=== PATIENT | male | born 1965 | race Caucasian/White ===

== ENCOUNTER 2020-02-22 16:43 | Inpatient (IN) ==
[2020-02-22] MEDS ORDERED: Albuterol/Ipratropium NEB.SOL (2.5/0.5 MG) 3 ML NEB.SOLN INH ONE (16:54)
[2020-02-22] MEDS ORDERED: NS 0.9% 1000 ml BAG 1,000 ML IV ONE ×2 (16:55→19:30)
[2020-02-22] MEDS ORDERED: methylPREDNISolone 125 mg 2 ML VIAL IV ONE (16:55)
[2020-02-22 18:03] LABS: Hematocrit 36 % (42-52); Hemoglobin 11.9 g/dL (14.0-18.0); Mean Corpuscular HGB Conc 33 g/dL (31-36); Mean Corpuscular Hemoglobin 31 pg (27-31); Mean Corpuscular Volume 92 fL (80-94); Red Cell Distribution Width 15 % (10-15)
[2020-02-22 18:15] LABS: ALT 24 U/L (7-52); AST 32 U/L (13-39); Albumin 3.1 g/dL (3.2-5.2); Albumin/Globulin Ratio 0.8 (1-3); Alkaline Phosphatase 143 U/L (34-104); Anion Gap 8 mmol/L (2-11); BUN/Creatinine Ratio 20.7 (8-20); Blood Urea Nitrogen 18 mg/dL (6-24); C Reactive Protein 430.14 mg/L (<8.01); CO2 Carbon Dioxide 31 mmol/L (22-32); Calcium 9.2 mg/dL (8.6-10.3); Chloride 92 mmol/L (101-111); EGFR African American 109.8 (>60); EGFR Non-African American 90.8 (>60); Globulin 3.7 g/dL (2-4); Glucose 113 mg/dL (70-100); Potassium 4.2 mmol/L (3.5-5.0); Sodium 131 mmol/L (135-145); Total Protein 6.8 g/dL (6.4-8.9)
[2020-02-22 18:27] LABS: Troponin I 0.06 ng/mL (<0.03)
[2020-02-22] MEDS ORDERED: Iodixanol (CONTRAST) 320 MG/ML 100 ML SDV IV ONE (18:32)
[2020-02-22] MEDS ORDERED: Piperacillin/Tazobac ADVAN(*) 3.375 GM in NS 0.9% 100 ml BAG 100 ML IVPB ONE (18:34)
[2020-02-22] MEDS ORDERED: Levofloxacin 750 MG IVPREMIX(* 750 MG/150 ML BAG IVPB ONE (18:34)
[2020-02-22 18:36] LABS: Platelet Count 287 10^3/uL (150-450)
[2020-02-22 18:50] LABS: ABS Basophils 0.3 10^3/ul (0-0.2); ABS Eosinophils 0.2 10^3/ul (0-0.6); ABS Lymphocytes 0.5 10^3/ul (1.0-4.8); Eosinophil % 0.7 %; Nucleated Red Blood Cells % 0.1
[2020-02-22 19:00] LABS: INR 1.42 (0.82-1.09)
[2020-02-22] MEDS ORDERED: Morphine 4 MG/ML VIAL (1 ml) IV ONE (20:01)
[2020-02-22] MEDS ORDERED: Albuterol/Ipratropium NEB.SOL (2.5/0.5 MG) 3 ML NEB.SOLN INH PRN (21:20)
[2020-02-22] MEDS ORDERED: Albuterol HFA INHALER 8 gm MDI INH PRN (21:20)
[2020-02-22] MEDS ORDERED: Albuterol 2.5mg/3 ml (0.083%) NEB.SOLN INH PRN (21:20)
[2020-02-22] MEDS ORDERED: Ondansetron 4 mg VIAL 2 MG/ML 2 ml VIAL IV PRN (21:23)
[2020-02-22] MEDS ORDERED: Al Hydrox/Mg Hydrox/Simet LIQ 30 ML UDC PO PRN (21:23)
[2020-02-22 21:47] LABS: Magnesium 1.5 mg/dL (1.9-2.7); Prealbumin 4 mg/dL (18-38)
[2020-02-22] MEDS ORDERED: Magnesium Sulfate 2 gm BAG 2 GM/50 ML BAG IVPB ONE (21:49)
[2020-02-22] MEDS ORDERED: Zosyn per Pharmacy NOTE FOLLOW UP SCH (22:00)
[2020-02-22] MEDS ORDERED: Lactated Ringers 1000 ml BAG 1,000 ML IV SCH (22:00)
[2020-02-22 22:03] LABS: TSH (Thyroid Stimulating Horm) 2.73 mcIU/mL (0.34-5.60)
[2020-02-22] MEDS ORDERED: NS 0.9% IVPB ONE (22:30)
[2020-02-22] MEDS ORDERED: VANCOMYCIN IVPB ONE (22:30)
[2020-02-22] MEDS: Heparin 5000 UNITS/ML VIAL(*) 1 ml vial SUBCUT SCH (22:42)
[2020-02-22] MEDS: Morphine 2 MG/ML SYRINGE IV PRN (22:49)
[2020-02-22 23:35] LABS: Urine Appearance Clear; Urine Bilirubin Negative (Negative); Urine Blood 1+ (Negative); Urine Color Yellow; Urine Glucose Negative (Negative); Urine Ketones Trace (Negative); Urine Nitrite Negative (Negative); Urine Protein 2+(100 mg/dL) (Negative); Urine Specific Gravity 1.035 (1.010-1.030); Urine Urobilinogen Negative (Negative)
[2020-02-22 23:36] LABS: Urine Bacteria Absent (Absent); Urine Red Blood Cell Absent (Absent); Urine White Blood Cell Absent (Absent)
[2020-02-22 23:50] LABS: Troponin I 0.04 ng/mL (<0.03)
[2020-02-23] MEDS: ZOSYN 3.375 GM Q8H per EXTENDED INFUSION IV SCH ×3 (00:02→16:02)
[2020-02-23] MEDS: Morphine 2 MG/ML SYRINGE IV PRN ×5 (05:09→21:40)
[2020-02-23] MEDS: Heparin 5000 UNITS/ML VIAL(*) 1 ml vial SUBCUT SCH ×3 (05:19→21:46)
[2020-02-23 06:12] LABS: Hematocrit 33 % (42-52); Hemoglobin 10.8 g/dL (14.0-18.0); Mean Corpuscular HGB Conc 33 g/dL (31-36); Mean Corpuscular Hemoglobin 30 pg (27-31); Mean Corpuscular Volume 92 fL (80-94); Mean Platelet Volume 8.2 fL (7.4-10.4); Platelet Count 315 10^3/uL (150-450); Red Blood Count 3.57 10^6 /uL (4.18-5.48); Red Cell Distribution Width 15 % (10-15); White Blood Count 25.1 10^3/uL (3.5-10.8)
[2020-02-23 06:26] LABS: Albumin 2.8 g/dL (3.2-5.2); Albumin/Globulin Ratio 0.8 (1-3); BUN/Creatinine Ratio 25.3 (8-20); Calcium 8.8 mg/dL (8.6-10.3); EGFR African American 130.4 (>60); EGFR Non-African American 107.7 (>60); Globulin 3.4 g/dL (2-4); HDL Cholesterol 3.3 mg/dL; Potassium 4.2 mmol/L (3.5-5.0); Total Bilirubin 0.5 mg/dL (0.2-1.0); Total Protein 6.2 g/dL (6.4-8.9)
[2020-02-23] MEDS ORDERED: Vancomycin(*) 1,250 MG in NS 0.9% 250 ml 250 ML IV SCH (06:30)
[2020-02-23] MEDS ORDERED: Perflutren Lipid Microsphere 3 ML VIAL ONE (07:44)
[2020-02-23] MEDS ORDERED: NS 0.9% 100 ml BAG 100 ML ONE (07:52)
[2020-02-23 09:10] LABS: ABS Basophils 0.1 10^3/ul (0-0.2); ABS Lymphocytes 0.5 10^3/ul (1.0-4.8); ABS Monocytes 1.4 10^3/ul (0-0.8); Eosinophil % 0.2 %; Lymphocyte % 1.9 %; Nucleated Red Blood Cells % 0.1
[2020-02-23] MEDS ORDERED: Levofloxacin 750 MG IVPREMIX(* 750 MG/150 ML BAG IVPB SCH (20:00)
[2020-02-24] MEDS: ZOSYN 3.375 GM Q8H per EXTENDED INFUSION IV SCH ×2 (00:05→09:10)
[2020-02-24] MEDS: Morphine 2 MG/ML SYRINGE IV PRN ×2 (04:08→13:25)
[2020-02-24 04:29] LABS: Hematocrit 30 % (42-52); Hemoglobin 9.8 g/dL (14.0-18.0); Mean Corpuscular HGB Conc 33 g/dL (31-36); Mean Corpuscular Hemoglobin 30 pg (27-31); Mean Corpuscular Volume 91 fL (80-94); Mean Platelet Volume 8.1 fL (7.4-10.4); Platelet Count 339 10^3/uL (150-450); Red Blood Count 3.25 10^6 /uL (4.18-5.48); Red Cell Distribution Width 15 % (10-15); White Blood Count 23.7 10^3/uL (3.5-10.8)
[2020-02-24 04:44] LABS: BUN/Creatinine Ratio 36.7 (8-20); Calcium 8.8 mg/dL (8.6-10.3); EGFR African American 105.6 (>60); EGFR Non-African American 87.3 (>60); Potassium 4.3 mmol/L (3.5-5.0)
[2020-02-24] MEDS: Heparin 5000 UNITS/ML VIAL(*) 1 ml vial SUBCUT SCH ×3 (05:56→21:17)
[2020-02-24] MEDS ORDERED: Vancomycin Trough Check NOTE FOLLOW UP ONE (06:00)
[2020-02-24 12:11] LABS: C Reactive Protein 278.66 mg/L (<8.01)
[2020-02-24] MEDS: cefTRIAXone 1 gm/50 mL NS BAG 1 GM/50 ML BAG IVPB SCH (13:25)
[2020-02-24] MEDS ORDERED: LORazepam 2 mg VIAL 1 ml IV PUSH ONE (15:05)
[2020-02-24] MEDS ORDERED: Lorazepam PYXIS KEY PRN (15:05)
[2020-02-24] MEDS ORDERED: Gadoteridol (CONTRAST) 279.3 MG/ML 10 ML IV ONE (15:11)
[2020-02-25] MEDS: Heparin 5000 UNITS/ML VIAL(*) 1 ml vial SUBCUT SCH ×3 (05:05→20:41)
[2020-02-25 08:09] LABS: BUN/Creatinine Ratio 34.1 (8-20); Calcium 9.1 mg/dL (8.6-10.3); EGFR African American 112.8 (>60); EGFR Non-African American 93.2 (>60); Magnesium 2.1 mg/dL (1.9-2.7); Potassium 4.5 mmol/L (3.5-5.0)
[2020-02-25 08:09] LABS: Hematocrit 36 % (42-52); Hemoglobin 11.6 g/dL (14.0-18.0); Mean Corpuscular HGB Conc 33 g/dL (31-36); Mean Corpuscular Hemoglobin 30 pg (27-31); Mean Corpuscular Volume 93 fL (80-94); Mean Platelet Volume 8.4 fL (7.4-10.4); Platelet Count 447 10^3/uL (150-450); Red Blood Count 3.86 10^6 /uL (4.18-5.48); Red Cell Distribution Width 15 % (10-15)
[2020-02-25 08:16] LABS: ABS Lymphocytes 2.1 10^3/ul (1.0-4.8); ABS Monocytes 0.9 10^3/ul (0-0.8); ABS Nucleated RBC 0.1 10^3/ul; Eosinophil % 0.2 %; Nucleated Red Blood Cells % 0.3
[2020-02-25] MEDS: Morphine 2 MG/ML SYRINGE IV PRN ×2 (10:32→20:44)
[2020-02-25] MEDS: cefTRIAXone 1 gm/50 mL NS BAG 1 GM/50 ML BAG IVPB SCH (13:54)
[2020-02-25] MEDS ORDERED: Nicotine GUM 2MG FRUIT FLAVOR PO PRN (14:37)
[2020-02-25] MEDS: Nicotine PATCH 14 MG/24 HR PATCH TRANSDERM SCH (15:16)
[2020-02-25] MEDS: Magnesium Hydroxide LIQ 30 ML UDC PO SCH ×2 (15:18→20:38)
[2020-02-26] MEDS: Morphine 2 MG/ML SYRINGE IV PRN (04:35)
[2020-02-26] MEDS: Heparin 5000 UNITS/ML VIAL(*) 1 ml vial SUBCUT SCH ×3 (05:46→20:13)
[2020-02-26 07:55] LABS: Hematocrit 35 % (42-52); Hemoglobin 11.8 g/dL (14.0-18.0); Mean Corpuscular HGB Conc 33 g/dL (31-36); Mean Corpuscular Hemoglobin 31 pg (27-31); Mean Corpuscular Volume 92 fL (80-94); Platelet Count 472 10^3/uL (150-450); Red Blood Count 3.84 10^6 /uL (4.18-5.48); Red Cell Distribution Width 15 % (10-15); White Blood Count 18.4 10^3/uL (3.5-10.8)
[2020-02-26 08:06] LABS: ABS Eosinophils 0.1 10^3/ul (0-0.6); ABS Lymphocytes 1.9 10^3/ul (1.0-4.8); ABS Monocytes 1.1 10^3/ul (0-0.8); Eosinophil % 0.7 %; Lymphocyte % 10.4 %; Nucleated Red Blood Cells % 0.1
[2020-02-26] MEDS: Magnesium Hydroxide LIQ 30 ML UDC PO SCH (09:47)
[2020-02-26] MEDS: Nicotine PATCH 14 MG/24 HR PATCH TRANSDERM SCH (09:49)
[2020-02-26] MEDS ORDERED: Magnesium Hydroxide LIQ 30 ML UDC PO PRN (10:38)
[2020-02-26] MEDS: cefTRIAXone 1 gm/50 mL NS BAG 1 GM/50 ML BAG IVPB SCH (14:43)
[2020-02-27] MEDS: Heparin 5000 UNITS/ML VIAL(*) 1 ml vial SUBCUT SCH ×3 (04:52→20:17)
[2020-02-27] MEDS: Nicotine PATCH 14 MG/24 HR PATCH TRANSDERM SCH (09:08)
[2020-02-27] MEDS: Morphine 2 MG/ML SYRINGE IV PRN (11:36)
[2020-02-27] MEDS ORDERED: Gadoteridol (CONTRAST) 279.3 MG/ML 10 ML IV SCH (14:17)
[2020-02-27] MEDS ORDERED: LORazepam 2 mg VIAL 1 ml IV PUSH ONE (14:37)
[2020-02-27] MEDS: cefTRIAXone(*) 2 GM ADDV.VIAL 2 GM in NS 0.9% 100 ml BAG 100 ML IV SCH (17:05)
[2020-02-27 17:08] LABS: Hematocrit 37 % (42-52); Hemoglobin 11.8 g/dL (14.0-18.0); Mean Corpuscular HGB Conc 32 g/dL (31-36); Mean Corpuscular Hemoglobin 30 pg (27-31); Mean Corpuscular Volume 93 fL (80-94); Platelet Count 517 10^3/uL (150-450); Red Blood Count 3.91 10^6 /uL (4.18-5.48); Red Cell Distribution Width 15 % (10-15); White Blood Count 22.4 10^3/uL (3.5-10.8)
[2020-02-27 17:22] LABS: BUN/Creatinine Ratio 25.7 (8-20); C Reactive Protein 42.14 mg/L (<8.01); Calcium 8.8 mg/dL (8.6-10.3); EGFR African American 132.4 (>60); EGFR Non-African American 109.4 (>60); Potassium 4.6 mmol/L (3.5-5.0)
[2020-02-27 17:41] LABS: ABS Basophils 0.2 10^3/ul (0-0.2); ABS Eosinophils 0.1 10^3/ul (0-0.6); ABS Lymphocytes 0.8 10^3/ul (1.0-4.8); ABS Monocytes 0.5 10^3/ul (0-0.8); Eosinophil % 0.5 %; Lymphocyte % 3.4 %
[2020-02-27 18:16] LABS: HIV 4th Generation Nonreactive (Nonreactive)
[2020-02-28] MEDS: Heparin 5000 UNITS/ML VIAL(*) 1 ml vial SUBCUT SCH ×3 (06:13→21:12)
[2020-02-28] MEDS: Nicotine PATCH 14 MG/24 HR PATCH TRANSDERM SCH (08:39)
[2020-02-28 09:09] LABS: Hematocrit 38 % (42-52); Hemoglobin 12.2 g/dL (14.0-18.0); Mean Corpuscular HGB Conc 32 g/dL (31-36); Mean Corpuscular Hemoglobin 30 pg (27-31); Mean Corpuscular Volume 94 fL (80-94); Mean Platelet Volume 7.9 fL (7.4-10.4); Platelet Count 577 10^3/uL (150-450); Red Blood Count 4.09 10^6 /uL (4.18-5.48); Red Cell Distribution Width 15 % (10-15); White Blood Count 20.7 10^3/uL (3.5-10.8)
[2020-02-28 09:11] LABS: ABS Basophils 0.1 10^3/ul (0-0.2); ABS Eosinophils 0.2 10^3/ul (0-0.6); ABS Monocytes 0.6 10^3/ul (0-0.8); Eosinophil % 0.9 %; Lymphocyte % 9.8 %
[2020-02-28 09:17] LABS: BUN/Creatinine Ratio 19.4 (8-20); EGFR African American 148.5 (>60); EGFR Non-African American 122.7 (>60); Potassium 4.3 mmol/L (3.5-5.0)
[2020-02-28] MEDS: cefTRIAXone(*) 2 GM ADDV.VIAL 2 GM in NS 0.9% 100 ml BAG 100 ML IV SCH (14:14)
[2020-02-28] MEDS ORDERED: Furosemide 40 mg/4 ml IV VIAL IV SLOW PU ONE (15:27)
[2020-02-28] MEDS ORDERED: Potassium Chlor 20 meq TAB.ER PO ONE (15:28)
[2020-02-29] MEDS: Heparin 5000 UNITS/ML VIAL(*) 1 ml vial SUBCUT SCH ×3 (05:33→22:33)
[2020-02-29 06:12] LABS: Hematocrit 34 % (42-52); Hemoglobin 11.2 g/dL (14.0-18.0); Mean Corpuscular HGB Conc 33 g/dL (31-36); Mean Corpuscular Hemoglobin 30 pg (27-31); Mean Corpuscular Volume 92 fL (80-94); Mean Platelet Volume 7.6 fL (7.4-10.4); Platelet Count 522 10^3/uL (150-450); Red Cell Distribution Width 16 % (10-15); White Blood Count 15.9 10^3/uL (3.5-10.8)
[2020-02-29 06:23] LABS: Calcium 8.7 mg/dL (8.6-10.3); EGFR African American 141.2 (>60); EGFR Non-African American 116.7 (>60); Magnesium 1.9 mg/dL (1.9-2.7)
[2020-02-29 06:44] LABS: ABS Basophils 0.1 10^3/ul (0-0.2); ABS Eosinophils 0.2 10^3/ul (0-0.6); ABS Lymphocytes 1.9 10^3/ul (1.0-4.8); ABS Monocytes 0.5 10^3/ul (0-0.8); Lymphocyte % 12.1 %
[2020-02-29] MEDS: Nicotine PATCH 14 MG/24 HR PATCH TRANSDERM SCH (10:34)
[2020-02-29] MEDS: cefTRIAXone(*) 2 GM ADDV.VIAL 2 GM in NS 0.9% 100 ml BAG 100 ML IV SCH (15:42)
[2020-03-01] MEDS: Heparin 5000 UNITS/ML VIAL(*) 1 ml vial SUBCUT SCH ×3 (05:37→21:13)
[2020-03-01 06:52] LABS: Hematocrit 34 % (42-52); Hemoglobin 11.1 g/dL (14.0-18.0); Mean Corpuscular HGB Conc 32 g/dL (31-36); Mean Corpuscular Hemoglobin 30 pg (27-31); Mean Corpuscular Volume 93 fL (80-94); Mean Platelet Volume 7.9 fL (7.4-10.4); Platelet Count 521 10^3/uL (150-450); Red Blood Count 3.71 10^6 /uL (4.18-5.48); Red Cell Distribution Width 15 % (10-15); White Blood Count 13.6 10^3/uL (3.5-10.8)
[2020-03-01 07:01] LABS: BUN/Creatinine Ratio 20.3 (8-20); Calcium 8.7 mg/dL (8.6-10.3); EGFR African American 122.8 (>60); EGFR Non-African American 101.5 (>60); Potassium 4.1 mmol/L (3.5-5.0)
[2020-03-01 08:43] LABS: ABS Basophils 0.1 10^3/ul (0-0.2); ABS Eosinophils 0.1 10^3/ul (0-0.6); ABS Lymphocytes 1.8 10^3/ul (1.0-4.8); ABS Monocytes 0.5 10^3/ul (0-0.8); Eosinophil % 0.9 %; Lymphocyte % 12.9 %; Nucleated Red Blood Cells % 0.1
[2020-03-01] MEDS: Nicotine PATCH 14 MG/24 HR PATCH TRANSDERM SCH (10:17)
[2020-03-01] MEDS: cefTRIAXone(*) 2 GM ADDV.VIAL 2 GM in NS 0.9% 100 ml BAG 100 ML IV SCH (14:01)
[2020-03-02] MEDS: Heparin 5000 UNITS/ML VIAL(*) 1 ml vial SUBCUT SCH (05:37)
[2020-03-02] MEDS: Lidocaine PATCH 5% PATCH TRANSDERM SCH ×2 (05:43→07:50)
[2020-03-02 05:54] LABS: Hematocrit 36 % (42-52); Hemoglobin 11.6 g/dL (14.0-18.0); Mean Corpuscular HGB Conc 32 g/dL (31-36); Mean Corpuscular Hemoglobin 30 pg (27-31); Mean Corpuscular Volume 93 fL (80-94); Mean Platelet Volume 7.5 fL (7.4-10.4); Platelet Count 521 10^3/uL (150-450); Red Blood Count 3.92 10^6 /uL (4.18-5.48); Red Cell Distribution Width 16 % (10-15)
[2020-03-02 06:09] LABS: BUN/Creatinine Ratio 17.5 (8-20); Potassium 4.3 mmol/L (3.5-5.0)
[2020-03-02 06:10] LABS: Calcium 8.8 mg/dL (8.6-10.3)
[2020-03-02 06:18] LABS: ABS Basophils 0.1 10^3/ul (0-0.2); ABS Eosinophils 0.2 10^3/ul (0-0.6); ABS Lymphocytes 1.6 10^3/ul (1.0-4.8); ABS Monocytes 0.6 10^3/ul (0-0.8); Eosinophil % 1.2 %; Lymphocyte % 11.4 %
[2020-03-02] MEDS: Nicotine PATCH 14 MG/24 HR PATCH TRANSDERM SCH (07:50)
[2020-03-02 14:27] VITALS: BP 111/66
[2020-03-02] MEDS ORDERED: Lidocaine Patch REMOVE PATCH PATCH OFF SCH (21:00)
== END 2020-03-02 11:40 | DRG 139 ==
LOC: ED 16:43 → ICU 21:44 → MED 02-24 12:43
PROVIDERS: ADMIT Pediatrics; ATTEND Internal Medicine